=== PATIENT | male | born 1965 | race Caucasian/White ===

== ENCOUNTER 2019-10-11 18:03 | Inpatient (IN) ==
[2019-10-11] MEDS ORDERED: 0.9 % Sodium Chloride 1,000 ML IVC ONE (18:27)
[2019-10-11 19:01] LABS: Basophils % 0.1 %; Hemoglobin 10.2 g/dL (12.9-16.9); Lymphocytes # 0.4 K/mcL (0.6-4.6); Lymphocytes % 3.2 %; Mean Corpuscular Hemoglobin 32.3 pg (28.0-33.3); Mean Corpuscular Volume 94.9 fL (83.0-100.0); Mean Platelet Volume 10.4 fL (9.4-12.4); Monocytes # 0.5 K/mcL (0.0-1.3); Monocytes % 4.7 %; Neutrophils # 9.9 K/mcL (1.6-8.9); Platelet Count 145 K/mcL (140-400); Red Blood Count 3.16 M/mcL (4.19-5.50); Red Cell Distribution Width 13.2 % (11.5-14.5); White Blood Count 10.9 K/mcL (4.3-11.1)
[2019-10-11 19:16] LABS: Alanine Aminotransferase 13 Units/L (7-52); Albumin 2.8 g/dL (3.5-5.7); Albumin/Globulin Ratio 0.8 (1.1-2.2); Alkaline Phosphatase 77 Units/L (34-104); Aspartate Amino Transferase 13 Units/L (13-39); BUN/Creatinine Ratio 33 (6-26); Bilirubin,Total 1.1 mg/dL (0.3-1.0); Blood Urea Nitrogen 16 mg/dL (6-20); Calcium 8.7 mg/dL (8.6-10.3); Carbon Dioxide 28 mEq/L (23-29); Chloride 92 mEq/L (98-107); Globulin 3.4 g/dL (2.4-3.5); Glucose 111 mg/dL (70-105); Osmolality,Calculated 270 (280-300); Potassium 3.3 mEq/L (3.5-5.1); Sodium 129 mEq/L (136-145); Total Protein 6.2 g/dL (6.4-8.9); Troponin I < 0.03 ng/mL (< 0.04); eGFR For African Americans > 60 (> 60); eGFR For Non-African Americans > 60 (> 60)
[2019-10-11] MEDS ORDERED: Ketorolac 30 MG/ML VIAL IVP ONE (20:06)
[2019-10-11] MEDS ORDERED: Isovue-370 500 ML BOTTLE IVP ONE ×2 (21:20→22:29)
[2019-10-12] MEDS ORDERED: Naloxone 0.4 MG/ML INJ IVP PRN (02:32)
[2019-10-12] MEDS ORDERED: 0.9 % Sodium Chloride 1,000 ML IVC SCH (02:45)
[2019-10-12] MEDS: Nicotine 21 MG PATCH.TD24 TD SCH (03:54)
[2019-10-12] MEDS ORDERED: Potassium Chloride 40 MEQ, Lidocaine 1% 2 ML in 0.9 % Sodium Chloride 500 ML IVPB ONE (04:00)
[2019-10-12] MEDS: *HR* Heparin 5,000 UNIT/ML VIAL SQ SCH ×2 (05:44→16:43)
[2019-10-12 07:29] LABS: Hematocrit 23.7 % (37.5-50.1); Mean Corpuscular HGB Conc 34.2 g/dL (31.6-35.5); Mean Corpuscular Hemoglobin 32.7 pg (28.0-33.3); Mean Corpuscular Volume 95.6 fL (83.0-100.0); Mean Platelet Volume 9.8 fL (9.4-12.4); Platelet Count 104 K/mcL (140-400); Red Blood Count 2.48 M/mcL (4.19-5.50); Red Cell Distribution Width 13.6 % (11.5-14.5); White Blood Count 8.9 K/mcL (4.3-11.1)
[2019-10-12 07:38] LABS: Hemoglobin 8.1 g/dL (12.9-16.9)
[2019-10-12 07:49] LABS: BUN/Creatinine Ratio 45 (6-26); Blood Urea Nitrogen 17 mg/dL (6-20); Calcium 7.6 mg/dL (8.6-10.3); Carbon Dioxide 25 mEq/L (23-29); Chloride 97 mEq/L (98-107); Glucose 82 mg/dL (70-105); Magnesium 1.7 mg/dL (1.6-2.6); Osmolality,Calculated 269 (280-300); Phosphorous 3.1 mg/dL (2.7-4.5); Potassium 3.8 mEq/L (3.5-5.1); Sodium 129 mEq/L (136-145); eGFR For African Americans > 60 (> 60); eGFR For Non-African Americans > 60 (> 60)
[2019-10-12] MEDS: Piperacillin/Tazobactam 3.375 GM in 0.9 % Sodium Chloride Mini Bag 100 ML IVPB SCH ×2 (08:41→16:35)
[2019-10-12] MEDS ORDERED: Aminoglycoside Consult 1 EACH MC ONE (09:46)
[2019-10-12] MEDS: Gabapentin 300 MG CAPSULE PO SCH ×3 (11:58→21:08)
[2019-10-12] MEDS ORDERED: Tuberculin Skin Test (PPD) 5 UNIT/0.1 ML VIAL ID ONE (13:35)
[2019-10-12] MEDS ORDERED: Nicotine 2 MG GUM BC PRN (14:03)
[2019-10-12] MEDS: *HR* OxyCODONE/APAP 10/325 TABLET PO PRN ×2 (14:26→21:08)
[2019-10-12 15:09] LABS: Bilirubin,Urine Small (Negative); Blood,Urine Negative (Negative); Clarity,Urine Clear (Clear); Color,Urine Dark Yellow (Yellow); Glucose,Urine (UA) Normal (Normal); Ketones,Urine 15 mg/dL (Negative); Leukocyte Esterase,Urine Small (Negative); Nitrite,Urine Negative (Negative); Protein,Urine 30 mg/dL (Neg-Trace); Specific Gravity,Urine > 1.030 (1.010-1.025)
[2019-10-12 15:53] LABS: RBC,Urine 0-3 per hpf (0-3); Squamous Epithelial Cell,Urine Few per lpf (None-Few); WBC,Urine 0-3 per hpf (0-3)
[2019-10-12 15:54] LABS: Bacteria,Urine None Seen per hpf (None-Few); Renal Epithelial Cells,Urine Few per hpf (None-Few)
[2019-10-12] MEDS: *HR* LORazepam 1 MG TABLET PO SCH (21:08)
[2019-10-13] MEDS: Piperacillin/Tazobactam 3.375 GM in 0.9 % Sodium Chloride Mini Bag 100 ML IVPB SCH ×4 (00:20→23:10)
[2019-10-13 05:18] LABS: Eosinophils % 0.1 %; Hematocrit 20.5 % (37.5-50.1); Hemoglobin 6.9 g/dL (12.9-16.9); Immature Granulocytes % 1.2 % (0-4); Lymphocytes # 0.4 K/mcL (0.6-4.6); Lymphocytes % 3.9 %; Mean Corpuscular HGB Conc 33.7 g/dL (31.6-35.5); Mean Corpuscular Hemoglobin 33.3 pg (28.0-33.3); Mean Platelet Volume 10.2 fL (9.4-12.4); Monocytes # 0.5 K/mcL (0.0-1.3); Monocytes % 5.5 %; Neutrophils # 8.6 K/mcL (1.6-8.9); Platelet Count 105 K/mcL (140-400); Red Blood Count 2.07 M/mcL (4.19-5.50); Red Cell Distribution Width 13.7 % (11.5-14.5); Segmented Neutrophils % 89.3 %; White Blood Count 9.7 K/mcL (4.3-11.1)
[2019-10-13 05:39] LABS: BUN/Creatinine Ratio 30 (6-26); Blood Urea Nitrogen 12 mg/dL (6-20); Calcium 7.6 mg/dL (8.6-10.3); Carbon Dioxide 25 mEq/L (23-29); Chloride 98 mEq/L (98-107); Glucose 100 mg/dL (70-105); Magnesium 1.6 mg/dL (1.6-2.6); Osmolality,Calculated 268 (280-300); Phosphorous 2.5 mg/dL (2.7-4.5); Potassium 3.3 mEq/L (3.5-5.1); Sodium 129 mEq/L (136-145); eGFR For African Americans > 60 (> 60); eGFR For Non-African Americans > 60 (> 60)
[2019-10-13 05:43] LABS: % Iron Saturation 12 % (20-55); Iron 17 mcg/dL (65-175); Transferrin 99 mg/dL (203-362)
[2019-10-13] MEDS: *HR* Heparin 5,000 UNIT/ML VIAL SQ SCH ×2 (05:55→16:50)
[2019-10-13] MEDS: *HR* OxyCODONE/APAP 10/325 TABLET PO PRN ×3 (05:56→23:10)
[2019-10-13 05:57] LABS: Ferritin 947 ng/mL (20-250)
[2019-10-13 06:02] LABS: Folate 8.8 ng/mL (3.0-16.0)
[2019-10-13] MEDS: Tiotropium 18 MCG inhalation IH SCH (07:30)
[2019-10-13] MEDS ORDERED: Potassium Phosphate 44 MEQ in 0.9 % Sodium Chloride 250 ML IVPB ONE (08:46)
[2019-10-13] MEDS: Gabapentin 300 MG CAPSULE PO SCH ×3 (09:13→21:28)
[2019-10-13] MEDS: Nicotine 21 MG PATCH.TD24 TD SCH (09:14)
[2019-10-13 09:27] LABS: Hematocrit 23.6 % (37.5-50.1)
[2019-10-13] MEDS: 0.9 % Sodium Chloride 1,000 ML IVC SCH (14:06)
[2019-10-13] MEDS: *HR* LORazepam 1 MG TABLET PO SCH (21:28)
[2019-10-14] MEDS: 0.9 % Sodium Chloride 1,000 ML IVC SCH ×2 (03:13→20:54)
[2019-10-14] MEDS: *HR* Heparin 5,000 UNIT/ML VIAL SQ SCH ×2 (05:51→18:00)
[2019-10-14 06:27] LABS: Basophils % 0.1 %; Eosinophils % 0.1 %; Hematocrit 22.4 % (37.5-50.1); Hemoglobin 7.4 g/dL (12.9-16.9); Immature Granulocytes % 1.2 % (0-4); Lymphocytes # 0.4 K/mcL (0.6-4.6); Mean Corpuscular Hemoglobin 31.9 pg (28.0-33.3); Mean Corpuscular Volume 96.6 fL (83.0-100.0); Mean Platelet Volume 9.8 fL (9.4-12.4); Monocytes # 0.7 K/mcL (0.0-1.3); Monocytes % 5.6 %; Neutrophils # 11.3 K/mcL (1.6-8.9); Platelet Count 105 K/mcL (140-400); Red Blood Count 2.32 M/mcL (4.19-5.50); Red Cell Distribution Width 13.6 % (11.5-14.5); White Blood Count 12.5 K/mcL (4.3-11.1)
[2019-10-14 06:47] LABS: BUN/Creatinine Ratio 20 (6-26); Blood Urea Nitrogen 7 mg/dL (6-20); Calcium 7.5 mg/dL (8.6-10.3); Carbon Dioxide 25 mEq/L (23-29); Chloride 98 mEq/L (98-107); Glucose 90 mg/dL (70-105); Magnesium 1.4 mg/dL (1.6-2.6); Osmolality,Calculated 264 (280-300); Phosphorous 2.8 mg/dL (2.7-4.5); Potassium 3.2 mEq/L (3.5-5.1); Sodium 128 mEq/L (136-145); eGFR For African Americans > 60 (> 60); eGFR For Non-African Americans > 60 (> 60)
[2019-10-14 07:25] LABS: Platelet Estimate Slight Decrease (Normal)
[2019-10-14] MEDS: Tiotropium 18 MCG inhalation IH SCH (07:41)
[2019-10-14] MEDS ORDERED: Lidocaine -MPF 4% 5 ML AMPUL ONE (07:55)
[2019-10-14] MEDS ORDERED: Lidocaine -MPF 2% 2 ML VIAL ONE (08:08)
[2019-10-14] MEDS ORDERED: *HR* Propofol 200 MG/20 ML VIAL IVP ONE ×2 (08:09→12:53)
[2019-10-14] MEDS ORDERED: *HR* Succinylcholine 200 MG/10 ML VIAL IVP ONE (08:23)
[2019-10-14] MEDS ORDERED: Ondansetron 4 MG/2 ML VIAL ONE (08:25)
[2019-10-14] MEDS ORDERED: Dexamethasone 4 MG/ML VIAL ONE (08:25)
[2019-10-14] MEDS ORDERED: Potassium Chloride 40 MEQ, Lidocaine 1% 2 ML in 0.9 % Sodium Chloride 500 ML IVPB ONE (08:31)
[2019-10-14] MEDS ORDERED: Magnesium Sulfate 1 GM/102 ML PIGGYBACK IVPB ONE (08:31)
[2019-10-14] MEDS: Piperacillin/Tazobactam 3.375 GM in 0.9 % Sodium Chloride Mini Bag 100 ML IVPB SCH ×3 (10:59→23:23)
[2019-10-14] MEDS: Nicotine 21 MG PATCH.TD24 TD SCH (11:00)
[2019-10-14] MEDS: Gabapentin 300 MG CAPSULE PO SCH ×3 (11:00→20:47)
[2019-10-14] MEDS: *HR* OxyCODONE/APAP 10/325 TABLET PO PRN ×2 (11:03→20:47)
[2019-10-14] MEDS ORDERED: *HR* FentaNYL (PF) 100 MCG/2 ML VIAL ONE (11:32)
[2019-10-14] MEDS ORDERED: *HR* EPINEPHrine 1 MG/10 ML SYRINGE ONE (13:22)
[2019-10-14] MEDS ORDERED: *HR* EPINEPHrine 1 MG/10 ML SYRINGE INTRATRACH ONE (13:24)
[2019-10-14 16:44] LABS: Appearance of Body Fluid Cloudy (Clear); Volume of Body Fluid 15 mL
[2019-10-14 16:57] LABS: A.galactomannan Ag Index 0.03
[2019-10-14] MEDS: *HR* LORazepam 1 MG TABLET PO SCH (20:47)
[2019-10-15] MEDS: 0.9 % Sodium Chloride 1,000 ML IVC SCH ×2 (05:58→12:50)
[2019-10-15] MEDS: *HR* Heparin 5,000 UNIT/ML VIAL SQ SCH ×2 (05:59→16:15)
[2019-10-15 07:17] LABS: Basophils % 0.1 %; Hematocrit 23.5 % (37.5-50.1); Hemoglobin 7.7 g/dL (12.9-16.9); Immature Granulocytes % 1.6 % (0-4); Lymphocytes # 0.4 K/mcL (0.6-4.6); Lymphocytes % 2.9 %; Mean Corpuscular HGB Conc 32.8 g/dL (31.6-35.5); Mean Corpuscular Hemoglobin 31.8 pg (28.0-33.3); Mean Corpuscular Volume 97.1 fL (83.0-100.0); Monocytes # 0.5 K/mcL (0.0-1.3); Monocytes % 3.5 %; Neutrophils # 12.8 K/mcL (1.6-8.9); Platelet Count 151 K/mcL (140-400); Red Blood Count 2.42 M/mcL (4.19-5.50); Red Cell Distribution Width 13.6 % (11.5-14.5); Segmented Neutrophils % 91.9 %
[2019-10-15 07:38] LABS: BUN/Creatinine Ratio 23 (6-26); Blood Urea Nitrogen 10 mg/dL (6-20); Calcium 7.8 mg/dL (8.6-10.3); Carbon Dioxide 26 mEq/L (23-29); Chloride 100 mEq/L (98-107); Glucose 143 mg/dL (70-105); Magnesium 1.8 mg/dL (1.6-2.6); Osmolality,Calculated 274 (280-300); Phosphorous 2.8 mg/dL (2.7-4.5); Potassium 3.7 mEq/L (3.5-5.1); Sodium 131 mEq/L (136-145); eGFR For African Americans > 60 (> 60); eGFR For Non-African Americans > 60 (> 60)
[2019-10-15 07:48] LABS: Thyroid Stimulating Hormone 1.603 mcIU/mL (0.340-5.600)
[2019-10-15] MEDS: *HR* OxyCODONE/APAP 10/325 TABLET PO PRN ×2 (08:01→21:13)
[2019-10-15] MEDS: Nicotine 21 MG PATCH.TD24 TD SCH (08:01)
[2019-10-15] MEDS: Gabapentin 300 MG CAPSULE PO SCH ×3 (08:01→21:13)
[2019-10-15] MEDS: Piperacillin/Tazobactam 3.375 GM in 0.9 % Sodium Chloride Mini Bag 100 ML IVPB SCH ×3 (08:07→23:26)
[2019-10-15] MEDS: Tiotropium 18 MCG inhalation IH SCH (10:55)
[2019-10-15 12:38] LABS: QuantiFERON Mitogen minus NIL 6.68 IU/mL
[2019-10-15 14:59] LABS: QuantiFERON NIL 0.02 IU/mL; QuantiFERON-TB Gold In-Tube NEGATIVE (Negative)
[2019-10-15] MEDS: *HR* LORazepam 1 MG TABLET PO SCH (21:13)
[2019-10-16] MEDS: *HR* OxyCODONE/APAP 10/325 TABLET PO PRN ×3 (05:44→19:59)
[2019-10-16] MEDS: 0.9 % Sodium Chloride 1,000 ML IVC SCH (05:44)
[2019-10-16] MEDS: *HR* Heparin 5,000 UNIT/ML VIAL SQ SCH ×2 (05:45→17:20)
[2019-10-16] MEDS: Piperacillin/Tazobactam 3.375 GM in 0.9 % Sodium Chloride Mini Bag 100 ML IVPB SCH ×3 (08:03→23:41)
[2019-10-16] MEDS: Nicotine 21 MG PATCH.TD24 TD SCH (08:03)
[2019-10-16] MEDS: Gabapentin 300 MG CAPSULE PO SCH ×3 (08:03→21:05)
[2019-10-16] MEDS: Tiotropium 18 MCG inhalation IH SCH (08:21)
[2019-10-16] MEDS ORDERED: Levalbuterol Neb 0.63 MG/3 ML ONE (14:46)
[2019-10-16] MEDS: Levalbuterol Neb 0.63 MG/3 ML IH SCH (14:54)
[2019-10-16] MEDS: Acetylcysteine 10% 2 ML INHSOL IH SCH (14:57)
[2019-10-16] MEDS: levoFLOXacin 750 MG/150 ML 750 MG/150 ML BAG IVPB SCH (16:17)
[2019-10-16] MEDS: *HR* LORazepam 1 MG TABLET PO SCH (21:05)
[2019-10-17] MEDS: Levalbuterol Neb 0.63 MG/3 ML IH SCH ×4 (00:34→22:15)
[2019-10-17] MEDS: Acetylcysteine 10% 2 ML INHSOL IH SCH ×4 (00:35→22:15)
[2019-10-17 00:54] LABS: Basophils % 0.1 %; Eosinophils % 0.1 %; Hemoglobin 6.5 g/dL (12.9-16.9); Immature Granulocytes % 1.8 % (0-4); Lymphocytes # 0.4 K/mcL (0.6-4.6); Lymphocytes % 2.7 %; Mean Corpuscular HGB Conc 32.5 g/dL (31.6-35.5); Mean Corpuscular Hemoglobin 31.7 pg (28.0-33.3); Mean Corpuscular Volume 97.6 fL (83.0-100.0); Mean Platelet Volume 9.4 fL (9.4-12.4); Monocytes # 0.9 K/mcL (0.0-1.3); Monocytes % 6.1 %; Neutrophils # 13.2 K/mcL (1.6-8.9); Platelet Count 150 K/mcL (140-400); Red Blood Count 2.05 M/mcL (4.19-5.50); Red Cell Distribution Width 13.7 % (11.5-14.5); Segmented Neutrophils % 89.2 %; White Blood Count 14.8 K/mcL (4.3-11.1)
[2019-10-17 01:05] LABS: BUN/Creatinine Ratio 16 (6-26); Blood Urea Nitrogen 5 mg/dL (6-20); Calcium 7.4 mg/dL (8.6-10.3); Carbon Dioxide 26 mEq/L (23-29); Chloride 97 mEq/L (98-107); Glucose 107 mg/dL (70-105); Magnesium 1.3 mg/dL (1.6-2.6); Osmolality,Calculated 270 (280-300); Potassium 2.8 mEq/L (3.5-5.1); Sodium 131 mEq/L (136-145); eGFR For African Americans > 60 (> 60); eGFR For Non-African Americans > 60 (> 60)
[2019-10-17 01:39] LABS: Platelet Estimate Normal (Normal)
[2019-10-17] MEDS: *HR* OxyCODONE/APAP 10/325 TABLET PO PRN ×4 (03:39→21:32)
[2019-10-17] MEDS: 0.9 % Sodium Chloride 1,000 ML IVC SCH ×2 (03:40→18:51)
[2019-10-17] MEDS: *HR* Heparin 5,000 UNIT/ML VIAL SQ SCH ×2 (05:53→16:07)
[2019-10-17] MEDS: Tiotropium 18 MCG inhalation IH SCH (07:43)
[2019-10-17] MEDS: Gabapentin 300 MG CAPSULE PO SCH ×3 (09:03→21:32)
[2019-10-17] MEDS: Nicotine 21 MG PATCH.TD24 TD SCH (09:03)
[2019-10-17] MEDS: levoFLOXacin 750 MG/150 ML 750 MG/150 ML BAG IVPB SCH (09:04)
[2019-10-17] MEDS: Piperacillin/Tazobactam 3.375 GM in 0.9 % Sodium Chloride Mini Bag 100 ML IVPB SCH (09:06)
[2019-10-17] MEDS ORDERED: Potassium Chloride 40 MEQ, Lidocaine 1% 2 ML in 0.9 % Sodium Chloride 500 ML IVPB ONE (15:53)
[2019-10-17] MEDS: Meropenem 1,000 MG in Water for inj. (sterile) 20 ML IVP SCH (16:06)
[2019-10-17] MEDS ORDERED: 0.9 % Sodium Chloride 250 ML IVC SCH (16:45)
[2019-10-17] MEDS: *HR* LORazepam 1 MG TABLET PO SCH (21:32)
[2019-10-18] MEDS: Meropenem 1,000 MG in Water for inj. (sterile) 20 ML IVP SCH ×3 (01:03→17:53)
[2019-10-18 01:12] LABS: Basophils % 0.1 %; Hematocrit 23.3 % (37.5-50.1); Hemoglobin 7.7 g/dL (12.9-16.9); Immature Granulocytes % 1.4 % (0-4); Lymphocytes # 0.4 K/mcL (0.6-4.6); Lymphocytes % 2.4 %; Mean Corpuscular Hemoglobin 31.3 pg (28.0-33.3); Mean Corpuscular Volume 94.7 fL (83.0-100.0); Mean Platelet Volume 9.5 fL (9.4-12.4); Monocytes # 0.9 K/mcL (0.0-1.3); Neutrophils # 16.5 K/mcL (1.6-8.9); Platelet Count 156 K/mcL (140-400); Red Blood Count 2.46 M/mcL (4.19-5.50); Red Cell Distribution Width 14.9 % (11.5-14.5); Segmented Neutrophils % 91.1 %; White Blood Count 18.1 K/mcL (4.3-11.1)
[2019-10-18 02:13] LABS: BUN/Creatinine Ratio 12 (6-26); Blood Urea Nitrogen 4 mg/dL (6-20); Calcium 7.5 mg/dL (8.6-10.3); Carbon Dioxide 27 mEq/L (23-29); Chloride 101 mEq/L (98-107); Glucose 123 mg/dL (70-105); Magnesium 2.1 mg/dL (1.6-2.6); Osmolality,Calculated 274 (280-300); Potassium 3.5 mEq/L (3.5-5.1); Sodium 133 mEq/L (136-145); eGFR For African Americans > 60 (> 60); eGFR For Non-African Americans > 60 (> 60)
[2019-10-18] MEDS: *HR* Heparin 5,000 UNIT/ML VIAL SQ SCH ×2 (05:00→17:53)
[2019-10-18] MEDS: *HR* OxyCODONE/APAP 10/325 TABLET PO PRN ×2 (05:00→20:31)
[2019-10-18] MEDS: Levalbuterol Neb 0.63 MG/3 ML IH SCH ×3 (07:28→23:23)
[2019-10-18] MEDS: Tiotropium 18 MCG inhalation IH SCH (07:28)
[2019-10-18] MEDS: Acetylcysteine 10% 2 ML INHSOL IH SCH ×3 (07:28→23:22)
[2019-10-18 07:59] LABS: Alanine Aminotransferase 8 Units/L (7-52); Albumin/Globulin Ratio 0.8 (1.1-2.2); Alkaline Phosphatase 118 Units/L (34-104); Aspartate Amino Transferase 8 Units/L (13-39); Bilirubin,Direct 0.3 mg/dL (0.0-0.2); Bilirubin,Indirect 0.3 mg/dL (0.0-1.0); Bilirubin,Total 0.6 mg/dL (0.3-1.0); Globulin 2.5 g/dL (2.4-3.5); Total Protein 4.5 g/dL (6.4-8.9)
[2019-10-18] MEDS: Gabapentin 300 MG CAPSULE PO SCH ×3 (08:31→20:31)
[2019-10-18] MEDS: Nicotine 21 MG PATCH.TD24 TD SCH (08:31)
[2019-10-18] MEDS ORDERED: Colistin (Colistimethate) 300 MG in 0.9 % Sodium Chloride 50 ML IVPB ONE (12:00)
[2019-10-18] MEDS: *HR* LORazepam 1 MG TABLET PO SCH (20:31)
[2019-10-18 20:52] LABS: Bilirubin,Urine Negative (Negative); Blood,Urine Negative (Negative); Clarity,Urine Clear (Clear); Color,Urine Yellow (Yellow); Glucose,Urine (UA) Normal (Normal); Ketones,Urine Negative (Negative); Leukocyte Esterase,Urine Negative (Negative); Nitrite,Urine Negative (Negative); PH,Urine 7.5 pH Units (5.0-8.0); Protein,Urine Negative (Neg-Trace); Specific Gravity,Urine 1.013 (1.010-1.025); Urobilinogen,Urine Normal (Normal)
[2019-10-19] MEDS: Meropenem 1,000 MG in Water for inj. (sterile) 20 ML IVP SCH ×3 (00:30→16:25)
[2019-10-19] MEDS: Colistin (Colistimethate) 150 MG in 0.9 % Sodium Chloride 50 ML IVPB SCH ×2 (00:31→16:23)
[2019-10-19 04:10] LABS: Basophils % 0.1 %; Eosinophils % 0.1 %; Hematocrit 23.3 % (37.5-50.1); Hemoglobin 7.6 g/dL (12.9-16.9); Lymphocytes # 0.4 K/mcL (0.6-4.6); Lymphocytes % 2.9 %; Mean Corpuscular HGB Conc 32.6 g/dL (31.6-35.5); Mean Corpuscular Hemoglobin 31.1 pg (28.0-33.3); Mean Corpuscular Volume 95.5 fL (83.0-100.0); Mean Platelet Volume 9.2 fL (9.4-12.4); Monocytes # 0.8 K/mcL (0.0-1.3); Monocytes % 5.3 %; Neutrophils # 13.8 K/mcL (1.6-8.9); Platelet Count 165 K/mcL (140-400); Red Blood Count 2.44 M/mcL (4.19-5.50); Red Cell Distribution Width 15.2 % (11.5-14.5); Segmented Neutrophils % 89.6 %; White Blood Count 15.4 K/mcL (4.3-11.1)
[2019-10-19 04:27] LABS: BUN/Creatinine Ratio 14 (6-26); Blood Urea Nitrogen 4 mg/dL (6-20); Calcium 7.8 mg/dL (8.6-10.3); Carbon Dioxide 28 mEq/L (23-29); Chloride 98 mEq/L (98-107); Glucose 91 mg/dL (70-105); Osmolality,Calculated 268 (280-300); Potassium 3.6 mEq/L (3.5-5.1); Sodium 131 mEq/L (136-145); eGFR For African Americans > 60 (> 60); eGFR For Non-African Americans > 60 (> 60)
[2019-10-19] MEDS: *HR* Heparin 5,000 UNIT/ML VIAL SQ SCH ×2 (05:36→16:24)
[2019-10-19] MEDS: *HR* OxyCODONE/APAP 10/325 TABLET PO PRN ×2 (05:38→22:36)
[2019-10-19] MEDS: Levalbuterol Neb 0.63 MG/3 ML IH SCH ×3 (07:32→23:13)
[2019-10-19] MEDS: Acetylcysteine 10% 2 ML INHSOL IH SCH ×3 (07:33→23:13)
[2019-10-19] MEDS: Tiotropium 18 MCG inhalation IH SCH (07:34)
[2019-10-19] MEDS: Gabapentin 300 MG CAPSULE PO SCH ×3 (10:10→22:36)
[2019-10-19] MEDS: Nicotine 21 MG PATCH.TD24 TD SCH (10:10)
[2019-10-19 12:29] LABS: HSV Source BAL RUL
[2019-10-19] MEDS: *HR* LORazepam 1 MG TABLET PO SCH (22:36)
[2019-10-19] MEDS ORDERED: Acetaminophen 325 MG TABLET PO ONE (23:18)
[2019-10-20] MEDS: Colistin (Colistimethate) 150 MG in 0.9 % Sodium Chloride 50 ML IVPB SCH ×3 (01:00→23:13)
[2019-10-20] MEDS: Meropenem 1,000 MG in Water for inj. (sterile) 20 ML IVP SCH ×4 (01:00→23:13)
[2019-10-20 01:03] LABS: Basophils % 0.1 %; Hematocrit 24.6 % (37.5-50.1); Hemoglobin 8.1 g/dL (12.9-16.9); Immature Granulocytes % 1.5 % (0-4); Lymphocytes # 0.5 K/mcL (0.6-4.6); Lymphocytes % 3.1 %; Mean Corpuscular HGB Conc 32.9 g/dL (31.6-35.5); Mean Corpuscular Hemoglobin 31.3 pg (28.0-33.3); Mean Platelet Volume 9.4 fL (9.4-12.4); Monocytes % 6.3 %; Platelet Count 177 K/mcL (140-400); Red Blood Count 2.59 M/mcL (4.19-5.50); Red Cell Distribution Width 14.7 % (11.5-14.5); White Blood Count 15.7 K/mcL (4.3-11.1)
[2019-10-20 01:23] LABS: BUN/Creatinine Ratio 17 (6-26); Blood Urea Nitrogen 6 mg/dL (6-20); Calcium 7.8 mg/dL (8.6-10.3); Carbon Dioxide 26 mEq/L (23-29); Chloride 95 mEq/L (98-107); Glucose 114 mg/dL (70-105); Osmolality,Calculated 264 (280-300); Potassium 3.2 mEq/L (3.5-5.1); Sodium 128 mEq/L (136-145); eGFR For African Americans > 60 (> 60); eGFR For Non-African Americans > 60 (> 60)
[2019-10-20] MEDS: *HR* Heparin 5,000 UNIT/ML VIAL SQ SCH ×2 (05:15→16:51)
[2019-10-20] MEDS: *HR* OxyCODONE/APAP 10/325 TABLET PO PRN ×3 (05:16→21:05)
[2019-10-20] MEDS: Levalbuterol Neb 0.63 MG/3 ML IH SCH ×3 (07:43→22:28)
[2019-10-20] MEDS: Acetylcysteine 10% 2 ML INHSOL IH SCH ×3 (07:43→22:28)
[2019-10-20] MEDS: Tiotropium 18 MCG inhalation IH SCH (07:44)
[2019-10-20] MEDS: Gabapentin 300 MG CAPSULE PO SCH ×3 (08:41→21:01)
[2019-10-20] MEDS: Nicotine 21 MG PATCH.TD24 TD SCH (08:41)
[2019-10-20] MEDS: Magic Mouthwash 10 ML UD Cup PO SCH ×3 (10:22→16:50)
[2019-10-20] MEDS: *HR* LORazepam 1 MG TABLET PO SCH (21:01)
[2019-10-20] MEDS: Mirtazapine 15 MG TABLET PO SCH (21:01)
[2019-10-21] MEDS: *HR* Heparin 5,000 UNIT/ML VIAL SQ SCH ×2 (04:57→18:02)
[2019-10-21 06:24] LABS: Hematocrit 25.7 % (37.5-50.1); Hemoglobin 7.9 g/dL (12.9-16.9); Mean Corpuscular HGB Conc 30.7 g/dL (31.6-35.5); Mean Corpuscular Volume 100.8 fL (83.0-100.0); Mean Platelet Volume 9.4 fL (9.4-12.4); Platelet Count 160 K/mcL (140-400); Red Blood Count 2.55 M/mcL (4.19-5.50); White Blood Count 13.9 K/mcL (4.3-11.1)
[2019-10-21 06:56] LABS: BUN/Creatinine Ratio 21 (6-26); Blood Urea Nitrogen 7 mg/dL (6-20); Carbon Dioxide 25 mEq/L (23-29); Chloride 100 mEq/L (98-107); Glucose 100 mg/dL (70-105); Osmolality,Calculated 270 (280-300); Potassium 4.1 mEq/L (3.5-5.1); Sodium 131 mEq/L (136-145); eGFR For African Americans > 60 (> 60); eGFR For Non-African Americans > 60 (> 60)
[2019-10-21] MEDS: Magic Mouthwash 10 ML UD Cup PO SCH ×3 (07:27→17:52)
[2019-10-21] MEDS: Nicotine 21 MG PATCH.TD24 TD SCH (07:27)
[2019-10-21] MEDS: Meropenem 1,000 MG in Water for inj. (sterile) 20 ML IVP SCH ×3 (07:27→23:12)
[2019-10-21] MEDS: Gabapentin 300 MG CAPSULE PO SCH ×3 (07:28→21:05)
[2019-10-21] MEDS: *HR* OxyCODONE/APAP 10/325 TABLET PO PRN ×3 (07:36→21:06)
[2019-10-21] MEDS: Levalbuterol Neb 0.63 MG/3 ML IH SCH ×3 (08:01→22:04)
[2019-10-21] MEDS: Acetylcysteine 10% 2 ML INHSOL IH SCH ×3 (08:03→22:04)
[2019-10-21] MEDS: Tiotropium 18 MCG inhalation IH SCH (10:38)
[2019-10-21] MEDS: Colistin (Colistimethate) 150 MG in 0.9 % Sodium Chloride 50 ML IVPB SCH ×2 (12:44→23:12)
[2019-10-21] MEDS: Lactobacillus 1 EACH CAP.SPRINK PO SCH ×2 (15:03→21:05)
[2019-10-21] MEDS: Mirtazapine 15 MG TABLET PO SCH (21:05)
[2019-10-21] MEDS: *HR* LORazepam 1 MG TABLET PO SCH (21:05)
[2019-10-22 02:08] LABS: Hematocrit 25.1 % (37.5-50.1); Mean Corpuscular HGB Conc 31.9 g/dL (31.6-35.5); Mean Corpuscular Volume 97.3 fL (83.0-100.0); Mean Platelet Volume 9.4 fL (9.4-12.4); Platelet Count 183 K/mcL (140-400); Red Blood Count 2.58 M/mcL (4.19-5.50); White Blood Count 15.3 K/mcL (4.3-11.1)
[2019-10-22 02:31] LABS: BUN/Creatinine Ratio 17 (6-26); Blood Urea Nitrogen 8 mg/dL (6-20); Calcium 8.1 mg/dL (8.6-10.3); Carbon Dioxide 26 mEq/L (23-29); Chloride 99 mEq/L (98-107); Glucose 134 mg/dL (70-105); Osmolality,Calculated 270 (280-300); Potassium 4.3 mEq/L (3.5-5.1); Sodium 130 mEq/L (136-145); eGFR For African Americans > 60 (> 60); eGFR For Non-African Americans > 60 (> 60)
[2019-10-22] MEDS: *HR* Heparin 5,000 UNIT/ML VIAL SQ SCH ×2 (05:05→18:31)
[2019-10-22] MEDS: Levalbuterol Neb 0.63 MG/3 ML IH SCH ×3 (07:22→22:06)
[2019-10-22] MEDS: Acetylcysteine 10% 2 ML INHSOL IH SCH ×3 (07:22→22:06)
[2019-10-22] MEDS: Nicotine 21 MG PATCH.TD24 TD SCH (07:45)
[2019-10-22] MEDS: *HR* OxyCODONE/APAP 10/325 TABLET PO PRN ×2 (07:46→18:35)
[2019-10-22] MEDS: Lactobacillus 1 EACH CAP.SPRINK PO SCH ×2 (07:47→19:21)
[2019-10-22] MEDS: Magic Mouthwash 10 ML UD Cup PO SCH ×3 (07:47→16:03)
[2019-10-22] MEDS: Gabapentin 300 MG CAPSULE PO SCH ×3 (07:47→19:21)
[2019-10-22] MEDS: Meropenem 1,000 MG in Water for inj. (sterile) 20 ML IVP SCH ×3 (07:48→23:38)
[2019-10-22] MEDS: Tiotropium 18 MCG inhalation IH SCH (10:54)
[2019-10-22] MEDS: Colistin (Colistimethate) 150 MG in 0.9 % Sodium Chloride 50 ML IVPB SCH ×2 (12:59→23:39)
[2019-10-22] MEDS: Mirtazapine 15 MG TABLET PO SCH (19:21)
[2019-10-22] MEDS: *HR* LORazepam 1 MG TABLET PO SCH (19:22)
[2019-10-22 21:21] LABS: Magnesium 1.5 mg/dL (1.6-2.6)
[2019-10-22] MEDS: Metoprolol XL (24 HR) Succ 25 MG TAB.ER.24H PO SCH (21:54)
[2019-10-23 03:50] LABS: BUN/Creatinine Ratio 24 (6-26); Blood Urea Nitrogen 10 mg/dL (6-20); Calcium 8.2 mg/dL (8.6-10.3); Carbon Dioxide 24 mEq/L (23-29); Chloride 98 mEq/L (98-107); Glucose 105 mg/dL (70-105); Osmolality,Calculated 267 (280-300); Sodium 129 mEq/L (136-145); eGFR For African Americans > 60 (> 60); eGFR For Non-African Americans > 60 (> 60)
[2019-10-23 03:52] LABS: Hematocrit 22.8 % (37.5-50.1); Hemoglobin 7.5 g/dL (12.9-16.9); Mean Corpuscular HGB Conc 32.9 g/dL (31.6-35.5); Mean Corpuscular Hemoglobin 31.3 pg (28.0-33.3); Mean Platelet Volume 9.3 fL (9.4-12.4); Platelet Count 174 K/mcL (140-400); Red Cell Distribution Width 14.9 % (11.5-14.5); White Blood Count 13.6 K/mcL (4.3-11.1)
[2019-10-23] MEDS: *HR* Heparin 5,000 UNIT/ML VIAL SQ SCH ×2 (05:14→17:01)
[2019-10-23] MEDS: Levalbuterol Neb 0.63 MG/3 ML IH SCH ×3 (07:38→22:42)
[2019-10-23] MEDS: Acetylcysteine 10% 2 ML INHSOL IH SCH ×3 (07:38→22:42)
[2019-10-23] MEDS: Tiotropium 18 MCG inhalation IH SCH (07:52)
[2019-10-23] MEDS: Magic Mouthwash 10 ML UD Cup PO SCH ×3 (08:00→15:14)
[2019-10-23] MEDS: Metoprolol XL (24 HR) Succ 25 MG TAB.ER.24H PO SCH (08:01)
[2019-10-23] MEDS: Gabapentin 300 MG CAPSULE PO SCH ×3 (08:01→21:05)
[2019-10-23] MEDS: Lactobacillus 1 EACH CAP.SPRINK PO SCH ×2 (08:01→21:04)
[2019-10-23] MEDS: Nicotine 21 MG PATCH.TD24 TD SCH (08:02)
[2019-10-23] MEDS: Meropenem 1,000 MG in Water for inj. (sterile) 20 ML IVP SCH ×3 (08:04→23:36)
[2019-10-23] MEDS: *HR* OxyCODONE/APAP 10/325 TABLET PO PRN ×2 (11:44→21:04)
[2019-10-23] MEDS: Colistin (Colistimethate) 150 MG in 0.9 % Sodium Chloride 50 ML IVPB SCH ×2 (11:47→23:36)
[2019-10-23] MEDS ORDERED: Ondansetron ODT 4 MG TAB.RAPDIS SL PRN (16:45)
[2019-10-23] MEDS: Mirtazapine 15 MG TABLET PO SCH (21:04)
[2019-10-23] MEDS: *HR* LORazepam 1 MG TABLET PO SCH (21:05)
[2019-10-24 07:53] VITALS: BP 108/66
[2019-10-24] MEDS: Acetylcysteine 10% 2 ML INHSOL IH SCH (07:53)
[2019-10-24] MEDS: Levalbuterol Neb 0.63 MG/3 ML IH SCH (07:53)
[2019-10-24] MEDS: Tiotropium 18 MCG inhalation IH SCH (07:54)
[2019-10-24] MEDS: Gabapentin 300 MG CAPSULE PO SCH (09:12)
[2019-10-24] MEDS: Lactobacillus 1 EACH CAP.SPRINK PO SCH (09:12)
[2019-10-24] MEDS: Metoprolol XL (24 HR) Succ 25 MG TAB.ER.24H PO SCH (09:12)
[2019-10-24] MEDS: Meropenem 1,000 MG in Water for inj. (sterile) 20 ML IVP SCH (09:12)
[2019-10-24] MEDS: Nicotine 21 MG PATCH.TD24 TD SCH (09:13)
[2019-10-24] MEDS: Magic Mouthwash 10 ML UD Cup PO SCH ×2 (09:13→10:20)
[2019-10-24] MEDS: *HR* Heparin 5,000 UNIT/ML VIAL SQ SCH (09:13)
[2019-10-24] MEDS: *HR* OxyCODONE/APAP 10/325 TABLET PO PRN (09:16)
== END 2019-10-24 12:35 | disposition home health service (06) | DRG 137 ==
LOC: 3BNU 18:03 → EMEROOARM 18:03 → SUATTDRO 21:30 → 3BNU 23:47 → SUATTDRO 10-12 12:59 → 3BNU 10-14 13:03
PROVIDERS: ADMIT Internal Medicine; ATTEND Internal Medicine

== ENCOUNTER 2019-11-18 09:38 | Inpatient (IN) ==
[2019-11-18] MEDS ORDERED: Isovue-370 500 ML BOTTLE IVP ONE (09:46)
[2019-11-18 10:21] LABS: Basophils % 0.2 %; Eosinophils % 0.1 %; Hematocrit 24.9 % (37.5-50.1); Hemoglobin 7.5 g/dL (12.9-16.9); Immature Granulocytes % 0.7 % (0-4); Lymphocytes # 1.1 K/mcL (0.6-4.6); Mean Corpuscular HGB Conc 30.1 g/dL (31.6-35.5); Mean Corpuscular Hemoglobin 27.7 pg (28.0-33.3); Mean Corpuscular Volume 91.9 fL (83.0-100.0); Mean Platelet Volume 8.8 fL (9.4-12.4); Monocytes # 0.8 K/mcL (0.0-1.3); Monocytes % 5.6 %; Neutrophils # 11.4 K/mcL (1.6-8.9); Platelet Count 502 K/mcL (140-400); Red Blood Count 2.71 M/mcL (4.19-5.50); Red Cell Distribution Width 16.2 % (11.5-14.5); Segmented Neutrophils % 85.4 %; White Blood Count 13.3 K/mcL (4.3-11.1)
[2019-11-18 10:42] LABS: BUN/Creatinine Ratio 17 (6-26); Blood Urea Nitrogen 7 mg/dL (6-20); Calcium 8.8 mg/dL (8.6-10.3); Carbon Dioxide 26 mEq/L (23-29); Chloride 97 mEq/L (98-107); Glucose 109 mg/dL (70-105); Osmolality,Calculated 273 (280-300); Potassium 3.2 mEq/L (3.5-5.1); Sodium 132 mEq/L (136-145); Troponin I < 0.03 ng/mL (< 0.04); eGFR For African Americans > 60 (> 60); eGFR For Non-African Americans > 60 (> 60)
[2019-11-18] MEDS ORDERED: Piperacillin/Tazobactam 3.375 GM in 0.9 % Sodium Chloride Mini Bag 100 ML IVPB ONE (11:37)
[2019-11-18] MEDS ORDERED: Naloxone 0.4 MG/ML INJ IVP PRN (11:55)
[2019-11-18] MEDS ORDERED: *HR* HYDROcodone/Acet 5/325 mg TABLET PO PRN (11:55)
[2019-11-18] MEDS ORDERED: Acetaminophen 325 MG TABLET PO PRN (11:55)
[2019-11-18] MEDS: Nicotine 21 MG PATCH.TD24 TD SCH (17:20)
[2019-11-18] MEDS: *HR* OxyCODONE ER (12 HR) 10 MG TABLET PO SCH (17:20)
[2019-11-18] MEDS: Piperacillin/Tazobactam 3.375 GM in 0.9 % Sodium Chloride Mini Bag 100 ML IVPB SCH (19:34)
[2019-11-19 03:13] LABS: Basophils % 0.3 %; Eosinophils % 0.2 %; Hematocrit 21.5 % (37.5-50.1); Hemoglobin 6.4 g/dL (12.9-16.9); Immature Granulocytes % 0.4 % (0-4); Lymphocytes # 1.1 K/mcL (0.6-4.6); Lymphocytes % 9.9 %; Mean Corpuscular HGB Conc 29.8 g/dL (31.6-35.5); Mean Corpuscular Hemoglobin 27.6 pg (28.0-33.3); Mean Corpuscular Volume 92.7 fL (83.0-100.0); Mean Platelet Volume 9.1 fL (9.4-12.4); Monocytes # 0.6 K/mcL (0.0-1.3); Monocytes % 5.4 %; Platelet Count 377 K/mcL (140-400); Red Blood Count 2.32 M/mcL (4.19-5.50); Red Cell Distribution Width 16.5 % (11.5-14.5); Segmented Neutrophils % 83.8 %; White Blood Count 10.7 K/mcL (4.3-11.1)
[2019-11-19 03:21] LABS: BUN/Creatinine Ratio 14 (6-26); Blood Urea Nitrogen 5 mg/dL (6-20); Carbon Dioxide 22 mEq/L (23-29); Chloride 102 mEq/L (98-107); Glucose 90 mg/dL (70-105); Magnesium 1.8 mg/dL (1.6-2.6); Osmolality,Calculated 271 (280-300); Potassium 3.6 mEq/L (3.5-5.1); Sodium 132 mEq/L (136-145); eGFR For African Americans > 60 (> 60); eGFR For Non-African Americans > 60 (> 60)
[2019-11-19] MEDS: Piperacillin/Tazobactam 3.375 GM in 0.9 % Sodium Chloride Mini Bag 100 ML IVPB SCH ×3 (04:47→20:06)
[2019-11-19] MEDS: *HR* Enoxaparin 40 MG/0.4 ML SYRINGE SQ SCH (05:49)
[2019-11-19] MEDS: *HR* OxyCODONE ER (12 HR) 10 MG TABLET PO SCH ×2 (06:00→17:12)
[2019-11-19] MEDS: Ondansetron 4 MG/2 ML VIAL IVP PRN (06:00)
[2019-11-19] MEDS: 0.9 % Sodium Chloride 250 ML ONE ×2 (06:25→14:26)
[2019-11-19] MEDS: Nicotine 21 MG PATCH.TD24 TD SCH (08:27)
[2019-11-19] MEDS: Mirtazapine 15 MG TABLET PO SCH (20:11)
[2019-11-20 00:52] LABS: Basophils % 0.3 %; Eosinophils % 0.5 %; Hematocrit 25.1 % (37.5-50.1); Hemoglobin 7.4 g/dL (12.9-16.9); Immature Granulocytes % 0.5 % (0-4); Lymphocytes # 1.2 K/mcL (0.6-4.6); Lymphocytes % 13.5 %; Mean Corpuscular HGB Conc 29.5 g/dL (31.6-35.5); Mean Corpuscular Hemoglobin 26.7 pg (28.0-33.3); Mean Corpuscular Volume 90.6 fL (83.0-100.0); Mean Platelet Volume 8.4 fL (9.4-12.4); Monocytes # 0.6 K/mcL (0.0-1.3); Neutrophils # 6.9 K/mcL (1.6-8.9); Platelet Count 380 K/mcL (140-400); Red Blood Count 2.77 M/mcL (4.19-5.50); Red Cell Distribution Width 15.9 % (11.5-14.5); Segmented Neutrophils % 78.2 %; White Blood Count 8.8 K/mcL (4.3-11.1)
[2019-11-20 01:08] LABS: BUN/Creatinine Ratio 11 (6-26); Blood Urea Nitrogen 4 mg/dL (6-20); Calcium 8.1 mg/dL (8.6-10.3); Carbon Dioxide 25 mEq/L (23-29); Chloride 100 mEq/L (98-107); Glucose 86 mg/dL (70-105); Osmolality,Calculated 270 (280-300); Potassium 3.2 mEq/L (3.5-5.1); Sodium 132 mEq/L (136-145); eGFR For African Americans > 60 (> 60); eGFR For Non-African Americans > 60 (> 60)
[2019-11-20] MEDS: Piperacillin/Tazobactam 3.375 GM in 0.9 % Sodium Chloride Mini Bag 100 ML IVPB SCH ×3 (04:03→19:48)
[2019-11-20] MEDS: *HR* Enoxaparin 40 MG/0.4 ML SYRINGE SQ SCH (04:57)
[2019-11-20] MEDS: *HR* OxyCODONE ER (12 HR) 10 MG TABLET PO SCH ×2 (05:20→17:23)
[2019-11-20] MEDS: Nicotine 21 MG PATCH.TD24 TD SCH (08:49)
[2019-11-20] MEDS ORDERED: Sennosides/Docusate Sodium TABLET PO PRN (10:39)
[2019-11-20] MEDS: Mirtazapine 15 MG TABLET PO SCH (20:00)
[2019-11-21] MEDS: *HR* OxyCODONE ER (12 HR) 10 MG TABLET PO SCH ×2 (06:03→17:55)
[2019-11-21] MEDS: Piperacillin/Tazobactam 3.375 GM in 0.9 % Sodium Chloride Mini Bag 100 ML IVPB SCH ×3 (06:04→20:52)
[2019-11-21] MEDS: *HR* Enoxaparin 40 MG/0.4 ML SYRINGE SQ SCH (06:06)
[2019-11-21 06:58] LABS: Basophils % 0.2 %; Eosinophils # 0.1 K/mcL (0.0-0.6); Eosinophils % 0.5 %; Hematocrit 27.6 % (37.5-50.1); Hemoglobin 8.3 g/dL (12.9-16.9); Immature Granulocytes % 0.5 % (0-4); Lymphocytes # 1.3 K/mcL (0.6-4.6); Lymphocytes % 11.7 %; Mean Corpuscular HGB Conc 30.1 g/dL (31.6-35.5); Mean Corpuscular Hemoglobin 27.1 pg (28.0-33.3); Mean Corpuscular Volume 90.2 fL (83.0-100.0); Mean Platelet Volume 8.6 fL (9.4-12.4); Monocytes # 0.8 K/mcL (0.0-1.3); Neutrophils # 8.9 K/mcL (1.6-8.9); Platelet Count 404 K/mcL (140-400); Red Blood Count 3.06 M/mcL (4.19-5.50); Red Cell Distribution Width 15.9 % (11.5-14.5); Segmented Neutrophils % 80.1 %
[2019-11-21 07:17] LABS: BUN/Creatinine Ratio 13 (6-26); Blood Urea Nitrogen 5 mg/dL (6-20); Calcium 8.6 mg/dL (8.6-10.3); Carbon Dioxide 23 mEq/L (23-29); Chloride 100 mEq/L (98-107); Glucose 111 mg/dL (70-105); Osmolality,Calculated 268 (280-300); Potassium 3.6 mEq/L (3.5-5.1); Sodium 130 mEq/L (136-145); eGFR For African Americans > 60 (> 60); eGFR For Non-African Americans > 60 (> 60)
[2019-11-21] MEDS: Nicotine 21 MG PATCH.TD24 TD SCH (08:34)
[2019-11-21] MEDS: Ondansetron 4 MG/2 ML VIAL IVP PRN (12:47)
[2019-11-21] MEDS: Mirtazapine 15 MG TABLET PO SCH (20:52)
[2019-11-21] MEDS: *HR* OxyCODONE Immed Rel 5 MG TABLET PO PRN (20:54)
[2019-11-22 02:55] LABS: Basophils % 0.3 %; Eosinophils # 0.1 K/mcL (0.0-0.6); Eosinophils % 0.5 %; Hematocrit 26.2 % (37.5-50.1); Immature Granulocytes % 1.8 % (0-4); Lymphocytes # 1.7 K/mcL (0.6-4.6); Lymphocytes % 15.4 %; Mean Corpuscular HGB Conc 30.5 g/dL (31.6-35.5); Mean Corpuscular Hemoglobin 27.1 pg (28.0-33.3); Mean Corpuscular Volume 88.8 fL (83.0-100.0); Mean Platelet Volume 8.9 fL (9.4-12.4); Monocytes # 0.9 K/mcL (0.0-1.3); Monocytes % 8.2 %; Neutrophils # 8.2 K/mcL (1.6-8.9); Platelet Count 372 K/mcL (140-400); Red Blood Count 2.95 M/mcL (4.19-5.50); Red Cell Distribution Width 15.9 % (11.5-14.5); Segmented Neutrophils % 73.8 %
[2019-11-22] MEDS: *HR* OxyCODONE Immed Rel 5 MG TABLET PO PRN (03:11)
[2019-11-22] MEDS: Piperacillin/Tazobactam 3.375 GM in 0.9 % Sodium Chloride Mini Bag 100 ML IVPB SCH ×2 (03:11→11:15)
[2019-11-22] MEDS: *HR* Enoxaparin 40 MG/0.4 ML SYRINGE SQ SCH (03:12)
[2019-11-22 03:13] LABS: BUN/Creatinine Ratio 9 (6-26); Blood Urea Nitrogen 4 mg/dL (6-20); Calcium 8.3 mg/dL (8.6-10.3); Carbon Dioxide 23 mEq/L (23-29); Chloride 100 mEq/L (98-107); Glucose 84 mg/dL (70-105); Osmolality,Calculated 268 (280-300); Sodium 131 mEq/L (136-145); eGFR For African Americans > 60 (> 60); eGFR For Non-African Americans > 60 (> 60)
[2019-11-22] MEDS: *HR* OxyCODONE ER (12 HR) 10 MG TABLET PO SCH ×2 (06:30→07:15)
[2019-11-22] MEDS ORDERED: *HR* LORazepam 0.5 MG TABLET PO PRN (10:20)
[2019-11-22 11:10] VITALS: BP 103/71
[2019-11-22] MEDS: Nicotine 21 MG PATCH.TD24 TD SCH (11:14)
== END 2019-11-22 16:29 | disposition hospice, home (50) | DRG 137 ==
LOC: EMEROOARM 09:38 → 2NENU 09:38 → 2ANU 11-21 15:16 → SUATTDRO 11-21 16:00
PROVIDERS: ADMIT Internal Medicine; ATTEND Internal Medicine